=== PATIENT | male | born 1950 | race Caucasian/White ===

== ENCOUNTER 2023-07-31 11:24 | Day surgery (SDC) | payer BC, OTHER ==
--- NOTE | 2023-07-26 09:41 | RAD REPORT ---
EXAM DESCRIPTION: RAD - Chest Pa And Lat (2 Views) - 07/26/2023 9:34 am CLINICAL HISTORY: PRE OP Chest pain. COMPARISON: Chest Single View dated 05/12/2017 FINDINGS: The lungs are clear. The heart is normal in size. No displaced fractures. IMPRESSION: No acute or concerning finding suspected. The USPSTF recommends annual screening for lung cancer with low-dose CT (LDCT) in adults aged 50 to 80 years who have a 20 pack-year smoking history and currently smoke or have quit within the past 15 years.
[2023-07-26 09:44] LABS: Absolute Eosinophils 0.1 K/uL (0-0.5); Absolute Lymphocytes (CBC) 1.2 K/uL (0.7-4.9); Absolute Monocytes 0.5 K/uL (0.1-1.3); Basophils % 0.6 % (0-1.3); Eosinophils % 1.2 % (0-4.4); Hematocrit 45.3 % (39.6-49.0); Hemoglobin 15.1 g/dL (13.6-17.9); Lymphocytes % 20.6 % (15.3-44.8); MCH 32.4 pg (27.0-35.0); MCHC 33.2 g/dL (32.0-36.0); MCV 97.5 fL (80-100); MPV 7.9 fL (7.6-11.3); Monocytes % 9.2 % (3.3-12.3); Neutrophils % 68.4 % (41.7-73.7); Platelets 191 thou/uL (152-406); RBC Red Blood Cell Count 4.65 M/uL (4.33-5.43); Red Cell Distribution Width 13.4 % (12.1-15.2)
[2023-07-26 09:45] LABS: PT Prothrombin Time 11.7 SECONDS (9.5-12.5); Protime INR 1.07
[2023-07-26 10:01] LABS: Anion Gap 6.3 mEq/L (5.0-15.0); Potassium 4.3 mEq/L (3.5-5.1)
--- NOTE | 2023-07-27 14:40 | EKG ---
Test Date: 2023-07-26 Test Time: 09:26:58 Mechanical Product Engineer: ANABELL MEASUREMENT RESULTS: Intervals: Rate: 58 IL: 192 QRSD: 74 QT: 410 QTc: 402 [place]: P: 73 IL: 192 QRS: -42 T: 45 INTERPRETIVE STATEMENTS: Sinus bradycardia Left axis deviation Abnormal ECG Compared to ECG 04/28/2016 13:33:06 Left-axis deviation now present Sinus rhythm no longer present Left anterior fascicular block no longer present Electronically Signed On 07-27-23 14:38:09 CDT by Kishore Nieves
[2023-07-31] MEDS ORDERED: ERTAPENEM NA 1 GM in NA CHLORIDE 0.9% 100 ML IVPB ONE (12:00)
== END 2023-07-31 13:10 | disposition home or self-care (01) ==
LOC: OR 11:24
PROVIDERS: ATTEND Urology
DX: N40.1 Benign prostatic hyperplasia with lower urinary tract symptoms (principal); N39.0 Urinary tract infection, site not specified; Z53.09 Procedure and treatment not carried out because of other contraindication
CPT/HCPCS: 93005; 85025; 80048; 36415; 85610; 71046; 96365; J1335

== ENCOUNTER 2025-01-20 06:01 | Day surgery (SDC) | payer BC ==
[2025-01-07 12:14] LABS: Absolute Lymphocytes (CBC) 1.4 K/uL (0.7-4.9); Hematocrit 45.8 % (39.6-49.0); Hemoglobin 15.5 g/dL (13.6-17.9); MCH 32.0 pg (27.0-35.0); MCHC 33.9 g/dL (32.0-36.0); MCV 94.2 fL (80-100); MPV 7.4 fL (7.6-11.3); Nucleated RBC Absolute Count 0.0 (0-0); Nucleated Red Blood Cells % 0.1 % (0-0); RBC Red Blood Cell Count 4.86 M/uL (4.33-5.43); White Blood Count 4.70 thou/uL (4.3-10.9)
[2025-01-07 12:18] LABS: Sqamous Epithelial None Seen /HPF (None Seen); Urine Crystals Unidentified Few /HPF (None Seen); Urine Culture Reflex Order REFLEXED; Urine Microscopic Reflex YN ORDER UMIC; Urine Yeast (Budding) Occasional /HPF (None Seen)
[2025-01-07 12:22] LABS: PT Prothrombin Time 12.4 SECONDS (10-13.0); Protime INR 1.1
--- NOTE | 2025-01-07 12:24 | RAD REPORT ---
Procedure: Chest Pa And Lat (2 Views) HISTORY: Preop for genitourinary surgery. Prostate cancer COMPARISON: 2023 FINDINGS: The lungs appear clear of acute infiltrate. No significant pleural effusion noted. The heart is normal size. IMPRESSION: No acute abnormality is displayed.
[2025-01-07 12:28] LABS: Anion Gap 8.0 mEq/L (5.0-15.0); BUN Blood Urea Nitrogen 17.0 mg/dL (7-18); Glucose Level 111.0 mg/dL (74-106); Potassium 4.0 mEq/L (3.5-5.1)
[2025-01-20] MEDS ORDERED: PIPERACIL/TAZO 3.375 GM VIAL IV ONE (06:15)
[2025-01-20] MEDS ORDERED: NA CHLORIDE 0.9% 100 ML ONE (06:18)
[2025-01-20] MEDS: Ringers Lactate 0 ML IV ONE (06:25)
[2025-01-20] MEDS: NA CHLORIDE 0.9% 1,000 ML ONE (06:30)
[2025-01-20] MEDS ORDERED: Phenylephrine HCl 10 MG/ML 1 ML VIAL ONE (07:00)
[2025-01-20] MEDS ORDERED: LIDOCAINE 1% MPF 5 ML VIAL ONE (07:00)
[2025-01-20] MEDS ORDERED: FENTANYL CITR 100 MCG/2 ML ONE (07:00)
[2025-01-20] MEDS ORDERED: NS 0.9% VIAL 10 ML ONE ×2 (07:03→07:06)
[2025-01-20] MEDS ORDERED: DEXMEDETOMIDINE HCL 200 MCG/2 ML VIAL ONE (07:30)
[2025-01-20] MEDS ORDERED: ONDANSETRON 4 MG/2 ML VIAL ONE (07:48)
[2025-01-20] MEDS ORDERED: PHENAZOPYRIDINE 100MG TAB PO ONE (08:59)
[2025-01-20] MEDS ORDERED: CODEINE 30MG/APAP 300MG TAB PO PRN (08:59)
[2025-01-20 09:12] VITALS: BP 123/76; TEMP 97.2; O2SAT 97
--- NOTE | 2025-01-20 17:06 | P.OP ---
Date of Service: 01/20/25 Preoperative diagnoses: Intermediate risk prostate cancer Asymptomatic bacteriuria History of TURP Postoperative diagnoses: Intermediate risk prostate cancer Asymptomatic bacteriuria History of TURP Principal procedures: Transrectal ultrasound-guided insertion of 2 fiducial markers Transrectal ultrasound-guided SpaceOAR gel insertion Cystoscopy Indications for procedure: 74-year-old gentleman with history of TURP for large volume incomplete emptying associated with recurrent UTIs subsequently demonstrated signs of progression of his prostate cancer and has elected definitive therapy via radiation. 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 He agreed. Procedure note: The patient was consented in the preoperative holding area before being transferred to the operative suite where general anesthesia was induced. He had been given Zosyn in the preoperative holding area about 30 minutes to 1 hour prior to the procedure. Pneumoboots were provided for DVT prophylaxis. He was placed in the high lithotomy position, padded and secured to the table appropriately. His genitalia was elevated out of the perineal region using an [place] drape and the perineum was prepped with Betadine after the transrectal ultrasound probe was placed via his anus into his rectum with ease under direct visualization. The prostate was visualized from the seminal vesicles to the perineal region beyond the apex in sagittal and axial dimensions with the ultrasound probe held by a stepper device. I began the procedure by targeting the patient's left lateral anterior gland peripherally where I placed the first fiducial marker via the perineum into the prostate in the mid gland region. I then angled the transrectal ultrasound probe to the patient's right side and again, very peripheral laterally in the mid gland anteriorly, I placed a second fiducial marker. I then angled the transrectal sound probe back to the midline and at this time advanced the SpaceOAR injection needle primed with sterile saline via the perineum and over the rectal hump below Dennonvillier's fascia and the prerectal fat plane. I was able to navigate that needle all the way into the mid base region at the level of the junction of the seminal vesicles with the prostate. I then hydrodissected by injecting saline along the entirety of the course from base to apex creating a beautiful separation in the fat plane after aspirating to ensure no intravascular localization of the needle. I then advanced the needle back into the mid base portion of the prostate and ensured I was in the midline axially before aspirating again to ensure no intravascular localization and then associating the SpaceOAR injection components for the gel. I then slowly injected the gel over the course of about 20 seconds and watched it distribute throughout the prerectal fat plane from the base to the apex as desired generating the buffer needed. I then removed the SpaceOAR needle before removing the transrectal ultrasound probe. Pressure was held where the needle sticks went into the perineum, and then I turned my attention to the cystoscopic portion of the operation. His genitalia was then prepped with Hibiclens and he was draped in standard fashion. I used a 22 [place] rigid cystoscope to traverse his urethra and into his bladder with ease. Beautiful opening throughout the prostatic urethra from the prior TURP was noted with no obstruction at all. Upon entry in the bladder, I decompressed of fluid and urine and then surveyed it using sterile saline. There was evidence of some mild chronic cystitis throughout and the bladder was markedly trabeculated with numerous cellules and small diverticuli. I distended the bladder and scoped into each and every cellules and diverticula looking for any sign of foreign body, stone or even mucous plug, and no foreign body was identified to explain the source of the continued asymptomatic bacteriuria. As a result, after a few different surveys of the bladder, I then decompressed it completely fluid and urine and removed the cystoscope. The patient was then taken out of the lithotomy position, awakened from general anesthesia, transferred to a stretcher, and then transferred to the recovery room in good condition. Complications: None Discharge disposition: He may begin simulation for radiation therapy accordingly within the next week or 2 and should follow-up with the radiation oncologist. Subsequent follow-up may be established with me, typically about 6 months after completion of radiation unless there are issues of urologic nature that arise needing my management sooner.
== END 2025-01-20 09:44 | disposition home or self-care (01) ==
LOC: OR 06:01
PROVIDERS: ATTEND Urology
PROC: 0VH43YZ Insertion of Other Device into Prostate and Seminal Vesicles, Percutaneous Approach (ICD-10-PCS; principal; 2025-01-20 07:30)
PROC: 0VH071Z Insertion of Radioactive Element into Prostate, Via Natural or Artificial Opening (ICD-10-PCS; 2025-01-20 07:30)
DX: C61 Malignant neoplasm of prostate (principal); R82.71 Bacteriuria; Z87.440 Personal history of urinary (tract) infections
CPT/HCPCS: 93005; 87088; 85025; 81001; 87086; 80048; 36415; 85610; 87077; 87186; 71046; 55874; 55876; A4216 ×2; J2704; J2003; J2371; J2543; J3010; J2405; J7030; C1889; J7120